=== PATIENT | female | born 1965 | race Caucasian/White ===

== ENCOUNTER 2023-12-22 08:48 | Outpatient (CLI) | payer OTHER, SELFPAY ==
--- NOTE | 2023-12-22 09:19 | ECG_ITS ---
SEE SCANNED COPY FOR CONFIRMED REPORT MTDD
== END 2023-12-22 08:49 | disposition home or self-care (01) ==
LOC: ANHSURGERY 08:55
PROVIDERS: PCP Family Medicine; Visit Provider Obstetrics & Gynecology
DX: N83.209 Unspecified ovarian cyst, unspecified side (principal); Z72.0 Tobacco use; Z01.818 Encounter for other preprocedural examination
CPT/HCPCS: 36415; 86850; 86900; 86901; 93005

== ENCOUNTER 2023-12-24 00:38 | Day surgery (SDC) | payer OTHER, SELFPAY ==
[2023-12-15 10:45] VITALS: BMI 29.2
--- NOTE | 2023-12-15 10:53 | PC.NURSE ---
Report to the Outpatient Waiting Room, entrance under the green pavilion located off [facility], at time 8:00 on date 12/24/23. Planned Procedure Time: 10:00. Time changes happen often and if your time is changed the preop area will call you the afternoon before. - You and your visitor will be asked to self-screen and do not enter if you have any COVID symptoms. - A mask is optional within the hospital at this time. Patients may have clear liquids (water, carbonated beverages, clear teas, apple juice) until 3 hours prior to surgery (7:00) with a maximum of 20 ounces. - No food from midnight until time of surgery Take the following medications with a SIP of water the morning of surgery: PAXIL, XANAX IF NEEDED DO NOT STOP ANY OF YOUR OTHER PRESCRIPTION MEDICATIONS PRIOR TO SURGERY ?EXCEPT THE FOLLOWING Medications to discontinue per physician: N/A Date to take last dose: N/A Please no make-up, nail chinese, hairspray, perfume, deodorant, or body powder the day of surgery. No jewelry (including any body piercings) or valuables the day of surgery, leave them at home. Please take a shower or bath the night before, or the morning of, surgery with an antibacterial soap. Wear comfortable, loose fitting clothing. - Jewelry must be removed prior to entering the operating room. Rings and piercings that are not removed may be cut off. - The hospital will not accept responsibility for valuables. - Please leave all valuables, including medications, at home the day of surgery. If you are going home after surgery, a licensed driver license examiner must drive you home. - NO public transportation without another adult if you receive anesthesia. - We recommend that an adult stay with you for 24 hours following discharge. - We also recommend that you do not drive, make important decision, drink alcoholic beverages, or take any drugs that were not prescribed by your health care provider for at least 24 hours after your discharge time. Follow any additional instructions given to you from your surgeon. If you or anyone in your household have experienced Covid symptoms in the past week, please notify your surgeon or the nurse liaison at the phone number below for possible testing. Telephone instructions given to BRIAN ACEVEDO and asked if any additional questions and then verbalized understanding. Patient advised to call surgeon office or pre surgery nurse liaison [phone] if any additional questions.
--- NOTE | 2023-12-21 16:13 | PM.IMHP ---
H&P: HPI History of Present Illness Date/Time: 12/21/23 16:13 Chief Complaint: pelvic pain and bilateral ovarian cyst 49-year-old female status post hysterectomy admitted for bilateral salpingo-oophorectomy secondary to bilateral ovarian cyst. Narrative: Patient is admitted for bilateral ovarian cystectomy. She has severe pelvic pain and tenderness in the adnexal areas. Risks and benefits reviewed including not exclusive of , aspiration pneumonia bleeding, transfusion, perforation injury to bowel, bladder, ureters, or other internal organs with need for open laparotomy. She received the [employer] handout entitled laparoscopy. She had all questions answered. She asked to proceed. [facility] Past Medical History Medical History Anxiety PONV (postoperative nausea and vomiting) Tobacco use Surgical History Surgical History History of breast augmentation Family History Family History Other Diabetes mellitus Family history of cardiovascular disease Family history of malignant neoplasm Hypertension Social History Social History Smoking packs per day: 1 Smoking cigarettes per day: 20.0 Years smoked: 40 Smoking pack-years: 40.00 Smoking status: Current every day smoker Tobacco type: cigarettes Alcohol intake: current Drinks per week: 10 Alcohol use details: IN SUMMER Substance use: never Substance use type: does not use Living arrangements: with family Spiritual care concerns: No Meds Home Medications and Allergies Home Medications Medication Instructions Recorded Confirmed Type alprazolam 1 mg tablet 2 mg PO TID PRN Anxiety 12/15/23 12/15/23 History estradiol 1 mg tablet 1 mg PO DAILY 12/15/23 12/15/23 History paroxetine HCl 20 mg tablet 20 mg PO DAILY 12/15/23 12/15/23 History Allergies Allergy/AdvReac Type Severity Reaction Status Date / Time levofloxacin Allergy Unknown Rash Verified 12/15/23 10:43 propoxyphene AdvReac Unknown Anxiety Verified 12/15/23 10:43 Exam Const: General: cooperative, healthy appearing, comfortable and average body habitus Orientation/consciousness: oriented to person, oriented to place and oriented to time HENMT: Head: normal to inspection Resp: Effort & Inspection: normal respiratory effort Cardio: Rate: regular rate Rhythm: regular rhythm Heart sounds: S1 normal heart sound present and S2 normal heart sound present GI: Inspection: normal to inspection Auscultation: normal bowel sounds : External Female Exam: normal external appearance Speculum Exam - Vagina: normal appearance of the vagina Speculum Exam - Cervix: Cervix absent Bimanual exam- vagina & uterus: uterus absent Bimanual Exam- Adnexa, other: tender bilaterally Assessment and Plan Assessment and plan (1) Bilateral ovarian cysts: Code(s): N83.201 - Unspecified ovarian cyst, right side; N83.202 - Unspecified ovarian cyst, left side Status: Acute Plan laparoscopic bilateral salpingo-oophorectomy
[2023-12-24] VITALS (14 sets, daily range): BP systolic 99–132; BP diastolic 62–93; PULSE 69–96; RESP 12–20; TEMP 36.3–37.1; O2SAT 94–100
--- NOTE | 2023-12-24 06:38 | WPDHPUPDATE1 ---
History and Physical Update Update Date/Time: 12/24/23 06:38 History and Physical has been reviewed, including an updated exam of the patient. There are NO changes in the patient's condition. Risks, benefits, and alternatives have been discussed and questions answered. Patient agrees to proceed with procedure.
--- NOTE | 2023-12-24 08:01 | P.PNAN_ITS ---
Anes - Initial Pre Proc Eval Procedure: Operation Date: 12/24/23 09:00 Proposed Procedures p Laparoscopic Bilateral Salpingo-Oophorectomy - Matias Alford MD Date/Time: 12/24/23 08:01 Surgeon: Matias Alford MD Pre Op Diagnosis: pelvic pain, bilat ovarian cyst Patient Data Age: 58 Gender: F Height: 1.6 m Weight: 75 kg Allergies Allergy/AdvReac Type Severity Reaction Status Date / Time levofloxacin Allergy Unknown Rash Verified 12/15/23 10:43 propoxyphene AdvReac Unknown Anxiety Verified 12/15/23 10:43 Home Medications Medication Instructions Recorded Confirmed Type alprazolam 1 mg tablet 2 mg PO TID PRN Anxiety 12/15/23 12/15/23 History estradiol 1 mg tablet 1 mg PO DAILY 12/15/23 12/15/23 History paroxetine HCl 20 mg tablet 20 mg PO DAILY 12/15/23 12/15/23 History hydrocodone 5 mg-acetaminophen 325 1 tablet PO Q4H PRN pain #20 tabs 12/24/23 Rx mg tablet Patient hx anesthesia problems: post op nausea/vomiting Family hx anesthesia problems: none Results Review: All pre-operative results and documents have been reviewed as part of the pre- operative evaluation. [facility] Past Medical History Medical History Anxiety PONV (postoperative nausea and vomiting) Tobacco use Surgical History Surgical History History of breast augmentation Family History Family History Other Diabetes mellitus Family history of cardiovascular disease Family history of malignant neoplasm Hypertension Social History Social History Smoking packs per day: 1 Smoking cigarettes per day: 20.0 Years smoked: 40 Smoking pack-years: 40.00 Smoking status: Current every day smoker Tobacco type: cigarettes Alcohol intake: current Drinks per week: 10 Alcohol use details: IN SUMMER Substance use: never Substance use type: does not use Living arrangements: with family Spiritual care concerns: No Anes - Eval Final PreProcedure Day of Procedure 12/24/23 08:01 Patient weight: normal Heart: regular rate and rhythm Lungs: clear to auscultation Airway: Mallampati scale class II and special considerations (Upper dentures. ) Neurological: alert and oriented Last oral intake: >/= 8 hours ASA classification: II Emergent: no Anesthetic plan: proceed Anesthesia type and monitoring: general and standard monitoring Results Review: All pre-operative results and documents have been reviewed as part of the pre- operative evaluation. Pt smokes 1 ppd, smoked approx 630 am today. Informed Consent: The patient's anesthetic plan and its attendant risks and benefits were discussed with the patient/family/POA. Questions were solicited and answers provided to the satisfaction of the patient/family/POA.
[2023-12-24] MEDS: ACETAMINOPHEN 500 MG TABLET 1000 MG PO (08:10)
[2023-12-24] MEDS: KETOROLAC 15 MG/ML VIAL (*BKC) IV PUSH (08:10)
[2023-12-24] MEDS: LACTATED RINGERS 1,000 ML 30 ML IV CONT ×2 (08:10→09:15)
--- NOTE | 2023-12-24 09:10 | P.OP_ITS ---
Procedure Note - Detailed Date of Procedure 12/24/23 Pre-op Diagnosis pelvic pain, bilat ovarian cyst/ adhesions Post-op Diagnosis Same Procedure Performed laparoscopy/bilateral salpingo-oophorectomy/ lysis of adhesions Surgeon Matias Alford MD Anesthesia General Indications 58-year-old female status post hysterectomy with pelvic pain and bilateral ovarian cysts Findings ovaries with simple bilateral cyst. Pelvic adhesions especially in the cul-de-sac. Uterus was absent Description of Procedure patient was prepped draped in normal sterile fashion placed in the dorsal lithotomy position. Under excellent general trach anesthesia weighted speculum placed in posterior fornix vagina. Sponge stick placed in the weighted speculum removed. The bladder was emptied of clear urine the instruments were otherwise withdrawn and gloves were changed. An infraumbilical incision made the Veress needle passed in the abdomen. Abdomen filled with CO2 gas [id number]. 5mm trocar advanced under direct visu alization assuring no injury. Patient placed in Trendelenburg and a suprapubic incision made. The 5mm trocar advanced under visualization assuring injury. Suprapubic incision made the 5mm trocar advanced under direct visualization assuring no injury. A left lower quadrant incision made the 8mm trocar advanced under direct visualization assuring no injury. The above findings were seen. Adhesions were seen in the cul-de-sac and these were sharply dissected using 5mm LigaSure. Next grasping the ovary with a suprapubic incision the 5mm LigaSure was placed across the infundibulopelvic structure in serially clamped burned and cut. In similar fashion the right fallopian tube and ovary were grasped and infundibulopelvic structure clamped burned and cut these were then taken through the left lower quadrant incision. The hemostasis was assured and irrigation undertaken. The gas removed from the abdomen after the instruments had been withdrawn. The trocars removed the incisions closed with 4-0 Monocryl glue. Patient went to recovery in satisfactory condition. All sponge instrument counts were correct. There were no immediate complications Estimated Blood Loss 5 Drains No Packing No Pathology Yes Complications No immediate complications Condition Stable Disposition PACU
[2023-12-24] MEDS: ONDANSETRON INJ 4 MG/2 ML VIAL IV PUSH (09:42)
[2023-12-24] MEDS: diphenhydrAMINE HCl INJ 50 MG/ML VIAL 12.5 MG IV PUSH ×2 (09:56→10:07)
[2023-12-24] MEDS: fentaNYL CITRATE INJ (*CRX) 100 MCG/2 ML VIAL 25 MCG IV PUSH (10:23)
[2023-12-24] MEDS: oxyCODONE HCL (*CRX) 5 MG TAB IR PO (11:10)
== END 2023-12-24 11:47 | disposition home or self-care (01) ==
PROVIDERS: PCP Family Medicine; Visit Provider Obstetrics & Gynecology
PROC: (CPT 49320; principal; 2023-12-24 09:00)
DX: N83.292 Other ovarian cyst, left side (principal); N83.291 Other ovarian cyst, right side; N73.6 Female pelvic peritoneal adhesions (postinfective); Z90.710 Acquired absence of both cervix and uterus; F41.9 Anxiety disorder, unspecified; F17.210 Nicotine dependence, cigarettes, uncomplicated
CPT/HCPCS: 58661; 36415; 86850; 86900; 86901; 88305; 93005; A9270; J0330; J1100; J1200; J1596; J1885; J2371; J2405; J2704; J3010; J7120

== ENCOUNTER 2024-03-06 00:37 | Day surgery (SDC) | payer OTHER, SELFPAY ==
[2024-02-16 14:51] VITALS: BMI 26.6
[2024-03-06 09:21] VITALS: BP 123/89; PULSE 97; RESP 18; TEMP 36.5; O2SAT 99
[2024-03-06] MEDS: LACTATED RINGERS 1,000 ML 150 ML IV CONT (09:33)
--- NOTE | 2024-03-06 09:45 | P.PNAN_ITS ---
Anes - Initial Pre Proc Eval Procedure: Operation Date: 03/06/24 10:30 Proposed Procedures p Colonoscopy - Ricci Valencia MD Date/Time: 03/06/24 09:45 Surgeon: Ricci Valencia MD Pre Op Diagnosis: Change in bowel habit Patient Data Age: 58 Gender: F Height: 1.6 m Weight: 67.7 kg Last Vital Signs Temp 97.7 F 03/06/24 09:21 Pulse 97 03/06/24 09:21 Resp 18 03/06/24 09:21 BP 123/89 03/06/24 09:21 Pulse Ox 99 03/06/24 09:21 O2 Del Method Room Air 03/06/24 09:21 Allergies Allergy/AdvReac Type Severity Reaction Status Date / Time levofloxacin Allergy Unknown Rash Verified 03/06/24 09:19 propoxyphene AdvReac Unknown Anxiety Verified 03/06/24 09:19 Home Medications Medication Instructions Recorded Confirmed Type alprazolam 1 mg tablet 2 mg PO TID PRN Anxiety 12/15/23 03/06/24 History estradiol 1 mg tablet 1 mg PO DAILY 12/15/23 03/06/24 History paroxetine HCl 20 mg tablet 20 mg PO DAILY 12/15/23 02/16/24 History Patient hx anesthesia problems: none Family hx anesthesia problems: none Results Review: All pre-operative results and documents have been reviewed as part of the pre- operative evaluation. REPLACED BY [facility] Past Medical History Medical History Anxiety PONV (postoperative nausea and vomiting) Tobacco use Surgical History Surgical History History of breast augmentation Family History Family History Other Diabetes mellitus Family history of cardiovascular disease Family history of malignant neoplasm Hypertension Social History Social History Smoking packs per day: 1 Smoking cigarettes per day: 20.0 Years smoked: 40 Smoking pack-years: 40.00 Smoking status: Current every day smoker Tobacco type: cigarettes Alcohol intake: current Drinks per week: 4 Alcohol use details: IN SUMMER Substance use: never Substance use type: does not use Living arrangements: with family Spiritual care concerns: No Anes - Eval Final PreProcedure Day of Procedure 03/06/24 09:45 Patient weight: normal Heart: regular rate and rhythm Lungs: clear to auscultation Airway: Mallampati scale class II Neurological: alert and oriented Last oral intake: >/= 8 hours ASA classification: II Emergent: no Anesthetic plan: proceed Anesthesia type and monitoring: general GIVS and standard monitoring Results Review: All pre-operative results and documents have been reviewed as part of the pre- operative evaluation. Informed Consent: The patient's anesthetic plan and its attendant risks and benefits were discussed with the patient/family/POA. Questions were solicited and answers provided to the satisfaction of the patient/family/POA.
--- NOTE | 2024-03-06 09:47 | PM.HPGS ---
History of Present Illness History of Present Illness Consent: Risks, benefits, and alternatives have been discussed and questions answered. Patient agrees to proceed with procedure. Chief complaint: Change in bowel habit Narrative: Teresa Bolaños is a 58 year old female here for colonoscopy, last one more than 10 years ago, lately with rectal discomfort. Also GERD and never had EGD. Review of Systems Review of Systems: All systems reviewed & are unremarkable except as noted in HPI and below PMFSH Past Medical History Medical History Anxiety Colon cancer screening GERD (gastroesophageal reflux disease) PONV (postoperative nausea and vomiting) Rectal pain Tobacco use Surgical History Surgical History History of breast augmentation Family History Family History Other Diabetes mellitus Family history of cardiovascular disease Family history of malignant neoplasm Hypertension Social History Social History Smoking packs per day: 1 Smoking cigarettes per day: 20.0 Years smoked: 40 Smoking pack-years: 40.00 Smoking status: Current every day smoker Tobacco type: cigarettes Alcohol intake: current Drinks per week: 4 Alcohol use details: IN SUMMER Substance use: never Substance use type: does not use Living arrangements: with family Spiritual care concerns: No Meds Home Medications and Allergies Home Medications Medication Instructions Recorded Confirmed Type alprazolam 1 mg tablet 2 mg PO TID PRN Anxiety 12/15/23 03/06/24 History estradiol 1 mg tablet 1 mg PO DAILY 12/15/23 03/06/24 History paroxetine HCl 20 mg tablet 20 mg PO DAILY 12/15/23 02/16/24 History Allergies Allergy/AdvReac Type Severity Reaction Status Date / Time levofloxacin Allergy Unknown Rash Verified 03/06/24 09:19 propoxyphene AdvReac Unknown Anxiety Verified 03/06/24 09:19 Vital Signs Vital Signs - 24 hr 03/06/24 09:21 Temperature 97.7 F Pulse Rate 97 Respiratory Rate 18 Blood Pressure 123/89 Pulse Oximetry 99 Oxygen Delivery Room Air Exam Const: General: comfortable and no acute distress HENMT: Face/Nose/Sinus: Normal nares present Eyes: General: appearance normal, both eyes and all related structures Neck: Neck: no JVD Resp: Auscultation: clear to auscultation bilaterally Cardio: Rate: regular rate Rhythm: regular rhythm GI: Inspection: non-distended GI Palp: Yes Soft to palpation Skin: General skin exam: normal color Neuro: General: gait normal Speech: normal speech Extrem: General: normal to inspection Psych: Mental Status: mental status grossly normal Assessment and Plan Assessment and plan (1) Colon cancer screening: Code(s): Z12.11 - Encounter for screening for malignant neoplasm of colon Status: Acute Assessment and Plan: colonoscopy (2) Rectal pain: Code(s): K62.89 - Other specified diseases of anus and rectum Status: Acute (3) GERD (gastroesophageal reflux disease): Code(s): K21.9 - Gastro-esophageal reflux disease without esophagitis Status: Acute Assessment and Plan: never had egd and symptomatic, gerd with epigastric pain this time PCP did not order EGD- will set up for another time
[2024-03-06 10:09] VITALS: BP 119/78; PULSE 80; RESP 21; O2SAT 97
[2024-03-06 10:19] VITALS: BP 116/77; PULSE 77; RESP 19; O2SAT 100
[2024-03-06 10:39] VITALS: BP 144/88; PULSE 80; RESP 25; O2SAT 100
--- NOTE | 2024-03-06 10:44 | SUR.PHASEII ---
Pt concerned regarding an external growth on rectum. Dr. Muro at bedside again to address pt concern.
== END 2024-03-06 10:44 | disposition home or self-care (01) ==
PROVIDERS: PCP Family Medicine; Referring Provider Obstetrics & Gynecology; Visit Provider Internal Medicine Gastroenterology
PROC: 0DJD8ZZ Inspection of Lower Intestinal Tract, Via Natural or Artificial Opening Endoscopic (ICD-10-PCS; CPT 45378; principal; 2024-03-06 10:30)
DX: Z12.11 Encounter for screening for malignant neoplasm of colon (principal); D12.3 Benign neoplasm of transverse colon; K57.30 Diverticulosis of large intestine without perforation or abscess without bleeding; K64.8 Other hemorrhoids; K21.9 Gastro-esophageal reflux disease without esophagitis; F17.210 Nicotine dependence, cigarettes, uncomplicated; F41.9 Anxiety disorder, unspecified
CPT/HCPCS: 45385; 88305; J2704; J7120

== ENCOUNTER 2024-03-29 15:00 | Outpatient (CLI) | payer OTHER, SELFPAY ==
--- NOTE | ~2024-03-29 | MM_ITS ---
EXAMINATION: MM scrn kem implant BI w urbano HISTORY: Screening mammogram TECHNIQUE: Craniocaudal and mediolateral oblique 3-D tomosynthesis images with implant displacement a nd synthetic 2-D images were generated. Craniocaudal and mediolateral oblique views of the breasts wi thout implant displacement were obtained using full field digital mammography. CAD analysis was submi tted and interpreted. COMPARISON: 07/06/2019 BREAST PARENCHYMAL COMPOSITION: Not dense: There are scattered areas of fibroglandular density. FINDINGS: There is no evidence of suspicious mass, calcification, or architectural distortion to sugg est malignancy in either breast. There has been no suspicious interval change. IMPRESSION: 1. No mammographic evidence of malignancy. 2. Recommend routine screening mammography in one year. BI-RADS Category 1: Negative Reviewed, dictated and finalized at location B.
== END 2024-03-29 15:01 ==
LOC: MICIMG 15:01
PROVIDERS: PCP Obstetrics & Gynecology; Visit Provider Obstetrics & Gynecology
DX: Z12.31 Encounter for screening mammogram for malignant neoplasm of breast (principal)
CPT/HCPCS: 77063; 77067

== ENCOUNTER 2024-04-21 00:31 | Day surgery (SDC) | payer OTHER, SELFPAY ==
[2024-04-05 14:43] VITALS: BMI 26.4
[2024-04-21 11:14] VITALS: BP 139/80; PULSE 76; RESP 19; TEMP 36.3; O2SAT 98
[2024-04-21] MEDS: LACTATED RINGERS 1,000 ML 150 ML IV CONT (11:26)
--- NOTE | 2024-04-21 11:26 | P.PNAN_ITS ---
Anes - Initial Pre Proc Eval Procedure: Operation Date: 04/21/24 12:30 Proposed Procedures p Esophagogastroduodenoscopy - Ricci Valencia MD Date/Time: 04/21/24 11:26 Surgeon: Ricci Valencia MD Pre Op Diagnosis: GERD Patient Data Age: 58 Gender: F Height: 1.6 m Weight: 65.9 kg Last Vital Signs Temp 97.4 F L 04/21/24 11:14 Pulse 76 04/21/24 11:14 Resp 19 04/21/24 11:14 BP 139/80 04/21/24 11:14 Pulse Ox 98 04/21/24 11:14 O2 Del Method Room Air 04/21/24 11:14 Allergies Allergy/AdvReac Type Severity Reaction Status Date / Time levofloxacin Allergy Intermediate Hives Verified 04/21/24 11:13 propoxyphene AdvReac Intermediate Anxiety Verified 04/21/24 11:13 Home Medications Medication Instructions Recorded Confirmed Type alprazolam 1 mg tablet 2 mg PO TID PRN Anxiety 12/15/23 04/21/24 History estradiol 1 mg tablet 1 mg PO DAILY 12/15/23 04/05/24 History paroxetine HCl 20 mg tablet 20 mg PO BID 12/15/23 04/05/24 History Patient hx anesthesia problems: none Family hx anesthesia problems: none Results Review: All pre-operative results and documents have been reviewed as part of the pre- operative evaluation. [facility] Past Medical History Medical History Anxiety Colon cancer screening GERD (gastroesophageal reflux disease) PONV (postoperative nausea and vomiting) Rectal pain Tobacco use Surgical History Surgical History History of breast augmentation Family History Family History Other Diabetes mellitus Family history of cardiovascular disease Family history of malignant neoplasm Hypertension Social History Social History Smoking packs per day: 1 Smoking cigarettes per day: 20.0 Years smoked: 40 Smoking pack-years: 40.00 Smoking status: Current every day smoker Tobacco type: cigarettes Alcohol intake: current Drinks per week: 4 Alcohol use details: IN SUMMER Substance use: never Substance use type: does not use Living arrangements: with family Spiritual care concerns: No Anes - Eval Final PreProcedure Day of Procedure 04/21/24 11:26 Patient weight: normal Heart: regular rate and rhythm Lungs: clear to auscultation Airway: Mallampati scale class II Neurological: alert and oriented Last oral intake: >/= 8 hours ASA classification: II Emergent: no Anesthetic plan: proceed Anesthesia type and monitoring: general GIVS and standard monitoring Results Review: All pre-operative results and documents have been reviewed as part of the pre-operative evaluation. Informed Consent: The patient's anesthetic plan and its attendant risks and benefits were discussed with the patient/family/POA. Questions were solicited and answers provided to the satisfaction of the patient/family/POA.
--- NOTE | 2024-04-21 11:35 | PM.HPGS ---
History of Present Illness History of Present Illness Consent: Risks, benefits, and alternatives have been discussed and questions answered. Patient agrees to proceed with procedure. Chief complaint: GERD Narrative: Teresa Bolaños is a 58 year old female here for egd because symptomatic gerd, using tums, never had egd. Review of Systems Review of Systems: All systems reviewed & are unremarkable except as noted in HPI and below PMFSH Past Medical History Medical History Anxiety Colon cancer screening GERD (gastroesophageal reflux disease) PONV (postoperative nausea and vomiting) Rectal pain Tobacco use Surgical History Surgical History History of breast augmentation Family History Family History Other Diabetes mellitus Family history of cardiovascular disease Family history of malignant neoplasm Hypertension Social History Social History Smoking packs per day: 1 Smoking cigarettes per day: 20.0 Years smoked: 40 Smoking pack-years: 40.00 Smoking status: Current every day smoker Tobacco type: cigarettes Alcohol intake: current Drinks per week: 4 Alcohol use details: IN SUMMER Substance use: never Substance use type: does not use Living arrangements: with family Spiritual care concerns: No Meds Home Medications and Allergies Home Medications Medication Instructions Recorded Confirmed Type alprazolam 1 mg tablet 2 mg PO TID PRN Anxiety 12/15/23 04/21/24 History estradiol 1 mg tablet 1 mg PO DAILY 12/15/23 04/05/24 History paroxetine HCl 20 mg tablet 20 mg PO BID 12/15/23 04/05/24 History Allergies Allergy/AdvReac Type Severity Reaction Status Date / Time levofloxacin Allergy Intermediate Hives Verified 04/21/24 11:13 propoxyphene AdvReac Intermediate Anxiety Verified 04/21/24 11:13 Vital Signs Vital Signs - 24 hr 04/21/24 11:14 Temperature 97.4 F L Pulse Rate 76 Respiratory Rate 19 Blood Pressure 139/80 Pulse Oximetry 98 Oxygen Delivery Room Air Exam Const: General: comfortable and no acute distress HENMT: Face/Nose/Sinus: Normal nares present Eyes: General: appearance normal, both eyes and all related structures Neck: Neck: no JVD Resp: Auscultation: clear to auscultation bilaterally Cardio: Rate: regular rate Rhythm: regular rhythm GI: Inspection: non-distended GI Palp: Yes Soft to palpation Skin: General skin exam: normal color Neuro: General: gait normal Speech: normal speech Extrem: General: normal to inspection Psych: Mental Status: mental status grossly normal Assessment and Plan Assessment and plan (1) GERD (gastroesophageal reflux disease): Code(s): K21.9 - Gastro-esophageal reflux disease without esophagitis Status: Acute Assessment and Plan: egd with bx may need ppi
[2024-04-21 11:48] VITALS: BP 115/75; PULSE 78; RESP 19; O2SAT 94
[2024-04-21 11:58] VITALS: BP 107/67; PULSE 76; RESP 20; O2SAT 91
[2024-04-21 12:08] VITALS: BP 111/67; PULSE 71; RESP 20; O2SAT 100
== END 2024-04-21 12:18 | disposition home or self-care (01) ==
PROVIDERS: PCP Family Medicine; Referring Provider Obstetrics & Gynecology; Visit Provider Internal Medicine Gastroenterology
PROC: 0DJ08ZZ Inspection of Upper Intestinal Tract, Via Natural or Artificial Opening Endoscopic (ICD-10-PCS; CPT 43235; principal; 2024-04-21 12:30)
DX: K29.50 Unspecified chronic gastritis without bleeding (principal); K21.9 Gastro-esophageal reflux disease without esophagitis; F41.9 Anxiety disorder, unspecified; F17.210 Nicotine dependence, cigarettes, uncomplicated; Z98.890 Other specified postprocedural states; Z80.9 Family history of malignant neoplasm, unspecified; Z82.49 Family history of ischemic heart disease and other diseases of the circulatory system
CPT/HCPCS: 43239; 88305; J2704; J7120

== ENCOUNTER 2024-05-11 18:39 | Emergency (ER) | payer OTHER, SELFPAY ==
--- NOTE | 2024-05-11 18:50 | ED.URI ---
HPI - URI/Sore Throat General Chief Complaint: Upper Respiratory Infection Stated Complaint: Cough/Congestion Time Seen by Provider: 05/11/24 18:51 Source: patient, RN notes reviewed and old records reviewed Mode of arrival: ambulatory Limitations: no limitations History of Present Illness HPI Narrative: patient presents with complaints of sinus pain and congestion that has been present for about 10 days, cough that began 3-4 days ago. She reports fatigue. Coughing fits that are lasting up to 20 minutes. She denies any fever, chills, sweats. She denies any injury or trauma. She has been taking [id number] cold and flu preparations without much relief. She does have an albuterol inhaler, reports that she has not been using it. Related Data Home Medications Medication Instructions Recorded Confirmed alprazolam 1 mg tablet 2 mg PO TID PRN Anxiety 12/15/23 05/11/24 estradiol 1 mg tablet 1 mg PO DAILY 12/15/23 05/11/24 paroxetine HCl 20 mg tablet 20 mg PO BID 12/15/23 05/11/24 Allergies Allergy/AdvReac Type Severity Reaction Status Date / Time levofloxacin Allergy Intermediate Hives Verified 05/11/24 18:50 propoxyphene AdvReac Intermediate Anxiety Verified 05/11/24 18:50 Review of Systems Review of Systems: All systems reviewed & are unremarkable except as noted in HPI and below Constitutional: Constitutional: Reports no additional constitutional complaints, Reports body ache(s), Reports chills, Reports headache(s) and Reports lethargy ENT: Reports system reviewed and no additional complaints, except as documented, Reports nasal discharge, Reports sinus pain and Reports sore throat Cardiovascular: Cardiovascular: Reports as per HPI and Reports no additional cardiovascular complaints Respiratory: Respiratory: Reports as per HPI, Reports no additional respiratory complaints and Reports pain with cough Gastrointestinal: Gastrointestinal: Reports no additional gastrointestinal complaints PMFSH Past Medical History Medical History Anxiety Colon cancer screening GERD (gastroesophageal reflux disease) PONV (postoperative nausea and vomiting) Rectal pain Tobacco use Surgical History Surgical History History of breast augmentation Family History Family History Other Diabetes mellitus Family history of cardiovascular disease Family history of malignant neoplasm Hypertension Social History Social History Smoking packs per day: 1 Smoking cigarettes per day: 20.0 Years smoked: 40 Smoking pack-years: 40.00 Smoking status: Current every day smoker Tobacco type: cigarettes Alcohol intake: current Drinks per week: 4 Alcohol use details: IN [place] Substance use: never Substance use type: does not use Living arrangements: with family Spiritual care concerns: No Comments At the time of my signature, I reviewed and agree with the nursing past medical, surgical, social, and family history. There is no relevant family history pertinent to the patient complaint. Exam Const: General: cooperative, no acute distress, alert, awake and uncomfortable Orientation/consciousness: oriented to person, oriented to place and oriented to time HENMT: Head: normal to inspection Ears: TM abnormal with fluid behind the TM bilateral Face/Nose/Sinus: sinus tenderness Mouth: Yes moist mucous membranes Throat: posterior oropharynx abnormal erythema and postnasal drainage Resp: Effort & Inspection: normal respiratory effort and able to speak in complete sentences Auscultation: clear to auscultation bilaterally, no crackles, no rales, no rhonchi and no wheezes Cardio: Palpation: normal PMI Rate: regular rate Rhythm: regular rhythm Heart sounds: S1 normal heart sound present and S2 normal heart sound present Neuro: General: oriented t
[2024-05-11 18:51] VITALS: BP 172/86; PULSE 83; RESP 16; TEMP 36.4; O2SAT 97
== END 2024-05-11 19:13 | disposition home or self-care (01) ==
PROVIDERS: Emergency Provider Nurse Practitioner Family; PCP Family Medicine
DX: R01.1 Cardiac murmur, unspecified (principal); J01.00 Acute maxillary sinusitis, unspecified; F17.210 Nicotine dependence, cigarettes, uncomplicated; K21.9 Gastro-esophageal reflux disease without esophagitis; F41.9 Anxiety disorder, unspecified
CPT/HCPCS: 99213; G0463

== ENCOUNTER 2024-10-03 09:32 | Outpatient (CLI) | payer OTHER, SELFPAY ==
--- NOTE | ~2024-10-03 | XR_ITS ---
Clinical Indication: Other specified symptoms and signs involving the carotid vascular system PA and lateral views of the chest: Comparison: None Findings: The lungs are clear, without evidence of focal consolidation or pleural effusion. Cardiome diastinal silhouette is within normal limits. Bones and soft tissues are unremarkable. Impression: Normal chest. Reviewed, dictated and finalized at location . [employer] REPORT DEVELOPER Impression: Normal chest.
== END 2024-10-03 09:33 | disposition home or self-care (01) ==
PROVIDERS: PCP Family Medicine; Visit Provider Nurse Practitioner Adult Health
DX: R09.89 Other specified symptoms and signs involving the circulatory and respiratory systems (principal)
CPT/HCPCS: 71046

== ENCOUNTER 2025-04-04 10:09 | Outpatient (CLI) | payer OTHER, SELFPAY ==
--- NOTE | ~2025-04-04 | MM_ITS ---
EXAMINATION: MM scrn kem implant BI w [place] HISTORY: Screening mammogram TECHNIQUE: Craniocaudal and mediolateral oblique 3-D tomosynthesis images with implant displacement a nd synthetic 2-D images were generated. Craniocaudal and mediolateral oblique views of the breasts wi thout implant displacement were obtained using full field digital mammography. CAD analysis was submi tted and interpreted. COMPARISON: Comparison to multiple prior studies sequentially, with oldest reviewed study dated 06/08. BREAST PARENCHYMAL COMPOSITION: Not dense: There are scattered areas of fibroglandular density. FINDINGS: There is no evidence of suspicious mass, calcification, or architectural distortion to sugg est malignancy in either breast. There has been no suspicious interval change. IMPRESSION: 1. No mammographic evidence of malignancy. 2. Recommend routine screening mammography in one year. BI-RADS Category 1: Negative Reviewed, dictated and finalized at location B.
== END 2025-04-04 10:10 | disposition home or self-care (01) ==
PROVIDERS: PCP Family Medicine; Visit Provider Obstetrics & Gynecology
DX: Z12.31 Encounter for screening mammogram for malignant neoplasm of breast (principal)
CPT/HCPCS: 77063; 77067